=== PATIENT | female | born 1970 | race Native Hawaiian/Other Pacific Islander ===

== ENCOUNTER 2021-02-04 08:22 | Outpatient (CLI) | payer BC | END 2021-02-04 19:31 | disposition home or self-care (01) | LOC: MAMMO 08:22 → EDBD 08:30 → MAMMO 19:31 | PROVIDERS: ATTEND Family Medicine | DX: Z12.31 Encounter for screening mammogram for malignant neoplasm of breast (principal); Z79.890 Hormone replacement therapy ==